=== PATIENT | male | born 1960 | race African-American/Black ===

== ENCOUNTER 2018-01-29 19:48 | Emergency (ER) | payer OTHER ==
--- NOTE | 2018-01-29 20:15 | PDOC ---
Rapid Medical Evaluation Time Seen by Provider: 01/29/18 20:13 Medical Evaluation: 01/29/18 20:13 I have performed a brief-in person evaluation of this patient. The patient presents with a chief complaint of:'I have numbness to the left side " just below the left chest x1 week. Numbness started on the left flank area Pt is a diabete/Type 2 Denies CP, SOB, n/v PMD: PMD: Dr. Wheat from [facility]/Pt's PMD is not affiliated with [facility] Pertinent physical exam findings: L/S CTAB, HR: RRR, S1, S2 I have ordered the following: EKG The patient will proceed to the ED for further evaluation.
[2018-01-29 20:16] VITALS: BP 133/73; PULSE 106; TEMP 98.2; BMI 31.0
[2018-01-29 20:44] LABS: BASO % 0.6 % (0-2.0); EOS % 2.3 % (0-4.5); HEMATOCRIT 39.1 % (35.4-49); HEMOGLOBIN 13.5 GM/dL (11.7-16.9); LYMPH % 36.9 % (8-40); MCH 32.3 pg (25.7-33.7); MCHC 34.6 g/dl (32.0-35.9); MEAN CELL VOLUME 93.2 fl (80-96); MEAN PLT VOLUME 8.6 fl (7.5-11.1); MONO % 7.4 % (3.8-10.2); NEUT % 52.8 % (42.8-82.8); PLATELET COUNT 213 K/MM3 (134-434); RDW 13.9 % (11.9-15.9); WHITE BLOOD COUNT 5.1 K/mm3 (4.0-10.0)
[2018-01-29 20:58] LABS: URINE APPEARANCE CLEAR; URINE BILIRUBIN NEGATIVE (<2.0 mg/dL); URINE COLOR YELLOW; URINE GLUCOSE (UA) 2+ (NEGATIVE); URINE KETONE NEGATIVE (NEGATIVE); URINE LEUK ESTERASE NEGATIVE (NEGATIVE); URINE NITRITE NEGATIVE (NEGATIVE); URINE PROTEIN NEGATIVE (NEGATIVE); URINE UROBILINOGEN NEGATIVE mg/dL (0.2-1.0)
[2018-01-29 21:11] LABS: ALBUMIN 3.9 g/dl (3.4-5.0); ANION GAP 12 (8-16); BLOOD UREA NITROGEN 13 mg/dL (7-18); CALCIUM 9.3 mg/dL (8.5-10.1); CHLORIDE 103 mmol/L (98-107); CO2 27 mmol/L (21-32); CREATININE 1.5 mg/dL (0.7-1.3); GLUCOSE,RANDOM 261 mg/dL (74-106); POTASSIUM 3.9 mmol/L (3.5-5.1); SGOT/AST 18 U/L (15-37); SGPT/ALT 17 U/L (12-78); SODIUM 142 mmol/L (136-145)
[2018-01-29 21:13] LABS: ALK PHOS 110 U/L (45-117); BILIRUBIN,TOTAL 0.4 mg/dL (0.2-1.0); TOT PROT 7.3 g/dl (6.4-8.2)
[2018-01-29 21:32] LABS: URINE BACTERIA RARE /hpf (NONE SEEN); URINE MUCUS RARE
[2018-01-30] MEDS ORDERED: amLODIPine BESYLATE 5 MG TABLET (FP) PO ONE (01:30)
--- NOTE | 2018-01-30 01:34 | PDOC ---
History of Present Illness - General History Source: Patient Exam Limitations: No Limitations - History of Present Illness Initial Comments: 01/30/18 02:48 Patient is a 57 year old male with a significant past medical history of Diabetes, who presents to the ED with complaints of left sided chest numbness, s /p fall that occured 1 week ago. Patient reports missing his chair when sitting down, causing him to hit his left chest on the counter and his buttocks on the floor. He reports feeling numbness in his left chest later that day, but states he only took aleve for it. Patient reports coming into the ED for further evaluation after experiencing no relief over the past week. Denies shortness of breath. Denies nausea, vomiting. Denies fevers, chills. Denies contact with sick individuals, out of state travelling. Denies any other symptoms. Allergies: Ion Social History: No smoking. No alcohol. No illicit drugs. Surgical History: None PMD: Dr. Juan M Kevin <Carter Castle - Last Filed: 01/30/18 02:48> <Coty Castro - Last Filed: 01/30/18 06:46> - General Chief Complaint: Back Pain Stated Complaint: NUMBESS ON LEFT SIDE OF CHEST Time Seen by Provider: 01/29/18 20:13 Past History <Carter Castle - Last Filed: 01/30/18 02:48> - Past Medical History COPD: No - Immunization History Immunization Up to Date: Yes - Suicide/Smoking/Psychosocial Hx Smoking History: Never smoked Have you smoked in the past 12 months: No Information on smoking cessation initiated: No Hx Alcohol Use: No Drug/Substance Use Hx: No Substance Use Type: None <Coty Castro - Last Filed: 01/30/18 06:46> - Past Medical History Allergies/Adverse Reactions: Allergies Allergy/AdvReac Type Severity Reaction Status Date / Time No Known Allergies Allergy Verified 01/29/18 20:16 Home Medications: Ambulatory Orders Amlodipine Besylate [Norvasc -] 5 mg PO DAILY #30 tablet 01/30/18 Review of Systems - Review of Systems Able to Perform ROS?: Yes Comments:: 01/30/18 02:48 GENERAL/CONSTITUTIONAL: No fever or chills. No weakness. HEAD, EYES, EARS, NOSE AND THROAT: No change in vision. No ear pain or discharge. No sore throat. CARDIOVASCULAR: +Left chest numbness. No shortness of breath. RESPIRATORY: No cough, wheezing, or hemoptysis. GASTROINTESTINAL: No nausea, vomiting, diarrhea or constipation. GENITOURINARY: No dysuria, frequency, or change in urination. MUSCULOSKELETAL: No joint or muscle swelling or pain. No neck or back pain. SKIN: No rash NEUROLOGIC: No headache, vertigo, loss of consciousness, or change in strength/ sensation. ENDOCRINE: No increased thirst. No abnormal weight change. HEMATOLOGIC/LYMPHATIC: No anemia, easy bleeding, or history of blood clots. ALLERGIC/IMMUNOLOGIC: No hives or skin allergy. <Carter Castle - Last Filed: 01/30/18 02:48> *Physical Exam - Vital Signs Last Vital Signs Temp Pulse Resp BP Pulse Ox 98.2 F 106 H 16 133/73 98 01/29/18 20:14 01/29/18 20:14 01/29/18 20:14 01/29/18 20:14 01/29/18 20:14 - Physical Exam Comments: 01/30/18 02:48 GENERAL: Awake, alert, and fully oriented, in no acute distress HEAD: No signs of trauma EYES: PERRLA, EOMI, sclera anicteric, conjunctiva clear ENT: Auricles normal inspection, hearing grossly normal, nares patent, oropharynx clear without exudates. Moist mucosa NECK: Normal ROM, supple, no lymphadenopathy, JVD, or masses LUNGS: Breath sounds equal, clear to auscultation bilaterally. No wheezes, and no crackles HEART: Regular rate and rhythm, normal S1 and S2, no murmurs, rubs or gallops ABDOMEN: Soft, nontender, normoactive bowel sounds. No guarding, no rebound. No masses EXTREMITIES: +Right leg pitting edema, greater than left. +Right knee arthritis , greater than left. Patient says chronic. Normal range of motion, no edema. No clubbing or cyanosis. No cords, erythema, or tenderness NEUROLOGICAL: Cranial nerves II through XII grossly intact. Normal speech, normal gait SKIN: Warm, Dry, normal turgor, no rashes or lesions noted. <Carter Castle - Last Filed: 01/30/18 02:48> - Vital Signs Last Vital Signs Temp Pulse Resp BP Pulse Ox 98.2 F 106 H 16 133/73 98 01/29/18 20:14 01/29/18 20:14 01/29/18 20:14 01/29/18 20:14 01/29/18 20:14 <Coty Castro - Last Filed: 01/30/18 06:46> Heart Score/ECG Review - ECG Intrepretation Comment:: 01/30/18 01:36 Completed @20:21:03 Sinus tachycardia Possible Left atrial fascicular block Left ventricular hypertrophy Abnormal ECG Vent. rate 104 bpm MO interval 140 ms QRS Duration 84 ms <Carter Castle - Last Filed: 01/30/18 02:48> ED Treatment Course - LABORATORY CBC & Chemistry Diagram: 01/29/18 20:40 01/29/18 20:40 - ADDITIONAL ORDERS Additional order review: Laboratory Results 01/29/18 01/29/18 20:40 20:40 Sodium 142 Potassium 3.9 Chloride 103 Carbon Dioxide 27 Anion Gap 12 BUN 13 Creatinine 1.5 H Creat Clearance w eGFR 48.59 Random Glucose 261 H Calcium 9.3 Total Bilirubin 0.4 AST 18 ALT 17 Alkaline Phosphatase 110 Creatine Kinase 242 Creatine Kinase Index 1.4 CK-MB (CK-2) 3.459 Troponin I < 0.02 Total Protein 7.3 Albumin 3.9 Urine Color Yellow Urine Appearance Clear Urine pH 5.0 Ur Specific [place] 1.024 Urine Protein Negative Urine Glucose (UA) 2+ H Urine Ketones Negative Urine Blood 2+ H Urine Nitrite Negative Urine Bilirubin Negative Urine Urobilinogen Negative Ur Leukocyte Esterase Negative Urine WBC (Auto) None Urine RBC (Auto) 1 Urine Bacteria Rare Urine Mucus Rare 01/29/18 20:40 RBC 4.20 MCV 93.2 MCHC 34.6 RDW 13.9 MPV 8.6 Neutrophils % 52.8 Lymphocytes % 36.9 Monocytes % 7.4 Eosinophils % 2.3 Basophils % 0.6 <Carter Castle - Last Filed: 01/30/18 02:48> - LABORATORY CBC & Chemistry Diagram: 01/29/18 20:40 01/29/18 20:40 - ADDITIONAL ORDERS Additional order review: Laboratory Results 01/29/18 01/29/18 20:40 20:40 Sodium 142 Potassium 3.9 Chloride 103 Carbon Dioxide 27 Anion Gap 12 BUN 13 Creatinine 1.5 H Creat Clearance w eGFR 48.59 Random Glucose 261 H Calcium 9.3 Total Bilirubin 0.4 AST 18 ALT 17 Alkaline Phosphatase 110 Creatine Kinase 242 Creatine Kinase Index 1.4 CK-MB (CK-2) 3.459 Troponin I < 0.02 Total Protein 7.3 Albumin 3.9 Urine Color Yellow Urine Appearance Clear Urine pH 5.0 Ur Specific [place] 1.024 Urine Protein Negative Urine Glucose (UA) 2+ H Urine Ketones Negative Urine Blood 2+ H Urine Nitrite Negative Urine Bilirubin Negative Urine Urobilinogen Negative Ur Leukocyte Esterase Negative Urine WBC (Auto) None Urine RBC (Auto) 1 Urine Bacteria Rare Urine Mucus Rare 01/29/18 20:40 RBC 4.20 MCV 93.2 MCHC 34.6 RDW 13.9 MPV 8.6 Neutrophils % 52.8 Lymphocytes % 36.9 Monocytes % 7.4 Eosinophils % 2.3 Basophils % 0.6 <Coty Castro - Last Filed: 01/30/18 06:46> Medical Decision Making - Medical Decision Making 01/30/18 06:44 Pt fell at work a couple weeks ago and now he has CP for a couple days. Labs normal. Pain is musculoskeletal. Pt is tachycardic with high BP today. He will be started on 5mg norvasc and he has been advised to follow with his PMD for meds. 01/30/18 06:45 EKG normal. Exam normal Pt feeling better. 01/30/18 06:46 <Coty Castro - Last Filed: 01/30/18 06:46> *DC/Admit/Observation/Transfer - Attestations Scribe Attestion: 01/30/18 02:48 Documentation prepared by Carter Castle, acting as biomedical engineering director for Coty Castro MD/DO. <Carter Castle - Last Filed: 01/30/18 02:48> <Coty Castro - Last Filed: 01/30/18 06:46> Diagnosis at time of Disposition: Low back pain - Discharge Dispostion Disposition: HOME - Prescriptions Prescriptions: Amlodipine Besylate [Norvasc -] 5 mg PO DAILY #30 tablet - Referrals Referrals: Juan M Kevin MD [Primary Care Provider] - - Patient Instructions - Post Discharge Activity
[2018-01-30] MEDS ORDERED: amLODIPine BESYLATE 5 MG TABLET (FP) ONE (01:55)
--- NOTE | 2018-01-30 09:20 | EKG ---
Test Reason : Blood Pressure : / mmHG Vent. Rate : 104 BPM Atrial Rate : 104 BPM P-R Int : 140 ms QRS Dur : 084 ms QT Int : 336 ms P-R-T Axes : 052 -52 047 degrees QTc Int : 441 ms SINUS TACHYCARDIA POSSIBLE LEFT ATRIAL ENLARGEMENT LEFT ANTERIOR FASCICULAR BLOCK LEFT VENTRICULAR HYPERTROPHY ABNORMAL ECG WHEN COMPARED WITH ECG OF 24-FEB-2004 13:50, NO SIGNIFICANT CHANGE WAS FOUND Confirmed by NUNU QUEEN, EZIO ([id number]) on 01/30/2018 9:20:24 AM Referred By: Confirmed By:EZIO EDDY MD
== END 2018-01-30 02:24 | disposition home or self-care (01) ==
LOC: JER 19:48
DX: M54.5 Low back pain (principal); I10 Essential (primary) hypertension; W07.XXXA Fall from chair, initial encounter; Y93.89 Activity, other specified; Y92.89 Other specified places as the place of occurrence of the external cause; Y99.8 Other external cause status
CPT/HCPCS: 36415; 80053; 81003; 81015; 82550; 82553; 84484; 85025; 93005; 93010; 99281-25

== ENCOUNTER 2019-11-23 11:22 | Inpatient (IN) | payer BC, OTHER ==
[2019-11-23] MEDS ORDERED: SODIUM CHLORIDE 1,000 ML IV SCH (12:30)
[2019-11-23 13:32] LABS: INR 0.95 (0.83-1.09); PROTHROMBIN TIME (PATIENT) 11.2 SEC (9.7-13.0)
[2019-11-23 13:36] LABS: ACTIVATED PTT 27.7 SECONDS (25.2-36.5)
[2019-11-23 13:45] LABS: BASO % 0.5 % (0-2.0); EOS % 1.7 % (0-4.5); HEMATOCRIT 43.1 % (35.4-49); HEMOGLOBIN 14.2 GM/dL (11.7-16.9); LYMPH % 42.7 % (8-40); MCH 31.2 pg (25.7-33.7); MEAN CELL VOLUME 94.3 fl (80-96); MEAN PLT VOLUME 9.6 fl (7.5-11.1); MONO % 6.8 % (3.8-10.2); NEUT % 48.3 % (42.8-82.8); PLATELET COUNT 229 K/MM3 (134-434); RBC 4.57 M/mm3 (4.00-5.60); RDW 14.1 % (11.9-15.9); WHITE BLOOD COUNT 5.9 K/mm3 (4.0-10.0)
[2019-11-23 13:46] LABS: URINE APPEARANCE CLEAR; URINE BILIRUBIN NEGATIVE (NEGATIVE); URINE COLOR YELLOW; URINE GLUCOSE (UA) NEGATIVE (NEGATIVE); URINE KETONE NEGATIVE (NEGATIVE); URINE LEUK ESTERASE NEGATIVE (NEGATIVE); URINE NITRITE NEGATIVE (NEGATIVE); URINE PROTEIN NEGATIVE (NEGATIVE); URINE UROBILINOGEN 0.2 mg/dL (0.2-1.0)
[2019-11-23 13:49] LABS: CHOLESTEROL 171 mg/dL (50-200); HDL CHOLESTEROL 41 mg/dL (40-60); LDL CHOLESTEROL (ONLY SJRH) 113 mg/dL (5-100); TRIGLYCERIDES 72 mg/dL (0-150)
[2019-11-23] MEDS ORDERED: ASPIRIN 325 MG TABLET PO ONE (13:49)
[2019-11-23] MEDS ORDERED: ASPIRIN 81 MG CHEWABLE TABLETS ONE (13:53)
--- NOTE | 2019-11-23 14:15 | EKG ---
Test Reason : Blood Pressure : / mmHG Vent. Rate : 090 BPM Atrial Rate : 090 BPM P-R Int : 146 ms QRS Dur : 086 ms QT Int : 360 ms P-R-T Axes : 056 -51 027 degrees QTc Int : 440 ms NORMAL SINUS RHYTHM LEFT ANTERIOR FASCICULAR BLOCK MINIMAL VOLTAGE CRITERIA FOR LVH, MAY BE NORMAL VARIANT ABNORMAL ECG WHEN COMPARED WITH ECG OF 29-JAN-2018 20:21, NO SIGNIFICANT CHANGE WAS FOUND Confirmed by MD CEASAR, SNEHAL ([id number]) on 11/23/2019 2:15:33 PM Referred By: Confirmed By:SNEHAL MCDONOUGH MD
[2019-11-23 14:20] LABS: ALBUMIN 4.1 g/dl (3.4-5.0); ALK PHOS 101 U/L (45-117); ANION GAP 7 MMOL/L (8-16); BILIRUBIN,TOTAL 0.3 mg/dL (0.2-1); BLOOD UREA NITROGEN 14.7 mg/dL (7-18); CALCIUM 9.5 mg/dL (8.5-10.1); CHLORIDE 105 mmol/L (98-107); CO2 28 mmol/L (21-32); CREATININE 1.2 mg/dL (0.55-1.3); GLUCOSE,RANDOM 119 mg/dL (74-106); SGOT/AST 30 U/L (15-37); SGPT/ALT 29 U/L (13-61); SODIUM 140 mmol/L (136-145); TOT PROT 7.6 g/dl (6.4-8.2)
--- NOTE | 2019-11-23 15:42 | PDOC ---
Documentation entered by Cathy Freire SCRIBE, acting as scribe for Kurtis Stallworth MD. Kurtis Stallworth MD: This documentation has been prepared by the Mouna lopez Adrianna, SCRIBE, under my direction and personally reviewed by me in its entirety. I confirm that the documentation accurately reflects all work, treatment, procedures, and medical decision making performed by me. History of Present Illness - General Chief Complaint: CVA/TIA Stated Complaint: NUMBNESS IN HAND AND FACE Time Seen by Provider: 11/23/19 12:04 - History of Present Illness Initial Comments: The patient is a 59 year old male, with a significant PMH of DM, who presents to the ED for evaluation of right-sided numbness that began this morning. Patient notes that he woke up from his sleep around 4am this morning, as the right lower half of his face and his right fingers had gone numb. He notes at that time, he had difficulty speaking to his , stating that he couldnt speak clearly. This episode lasted for ~30 minutes and slowly began resolving. Patient was able to go back to sleep following the incident. Although his symptoms have progressively gotten better, he notes he still has some numbness in his face and fingers (face is more predominant) so he came to the ED for further evaluation. He endorses some bilateral blurred vision and difficulty walking. Patient notes he measured his blood sugar prior to arrival, which was 133. Denies any weakness in the upper or lower extremities. Allergies: NKA, NKDA Surgical History: None reported Social History: No toxic habits PCP: NOS Past History - Past Medical History Allergies/Adverse Reactions: Allergies Allergy/AdvReac Type Severity Reaction Status Date / Time No Known Allergies Allergy Verified 11/23/19 11:35 Home Medications: Ambulatory Orders Glimepiride 4 mg PO BID 11/23/19 metFORMIN HCL [Metformin ER Osmotic] 1,000 mg PO BID 11/23/19 COPD: No Diabetes: Yes - Immunization History Immunization Up to Date: Yes - Psycho Social/Smoking Cessation Hx Smoking History: Never smoked Have you smoked in the past 12 months: No Information on smoking cessation initiated: No Hx Alcohol Use: No Drug/Substance Use Hx: No Substance Use Type: None Review of Systems - Review of Systems Comments:: CONSTITUTIONAL: No fever, no chills, no fatigue EYES: +Bilateral blurred vision. ENT: No ear pain, no sore throat CARDIOVASCULAR: No chest pain, no palpitations RESPIRATORY: No cough, no SOB GI: No abdominal pain, no nausea, no vomiting, no constipation, no diarrhea GENITOURINARY: No dysuria, no frequency, no hematuria MUSKULOSKELETAL: No back pain, no joint pain, no myalgias SKIN: No rash NEURO: +right lower facial numbness. +Right digits numbness. +Difficulty speaking clearly. +Difficulty walking. *Physical Exam - Vital Signs Last Vital Signs Temp Pulse Resp BP Pulse Ox 100 H 18 160/73 100 11/23/19 11:30 11/23/19 11:30 11/23/19 11:30 11/23/19 11:30 - Physical Exam 11/23/19 15:22 EXAMINATION CONSTITUTIONAL: Well-appearing; well-nourished; in no apparent distress HEAD: Normocephalic; atraumatic EYES: PERRL; EOM intact ENMT: External appears normal; normal oropharynx NECK: Supple; non-tender; no cervical lymphadenopathy CARD: Normal S1, S2; no murmurs, rubs, or gallops RESP: Normal chest excursion with respiration; breath sounds clear and equal bilaterally; no wheezes, rhonchi, or rales ABD: Soft, non-distended; non-tender; no palpable organomegaly, no palpable hernias EXT: Normal ROM in all four extremities; non-tender to palpation; distal pulses intact SKIN: Warm, dry, no rash NEURO: Cranial nerves II through XII are grossly intact; motor is five 5 x 4; no pronation drift; no cerebellar signs; gait is stable. Decreased fine touch noted to right lower face NIH Stroke Scale - Last Known Well Date/Time & Onset Date Last Known Well: 11/23/19 Time Last Known Well: 04:00 - Initial Evaluation Level of consciousness: Alert Ask patient the month and their age: Answers both correctly Ask patient to open & close eyes; make fist and let go: Obeys both correctly Best gaze (horizontal eye movement): Normal Visual field testing: No visual field loss Facial paresis (Show teeth/raise eyebrows/close eyes tight): Normal symmetrical movement Motor Function: Left Arm: Normal Motor Function: Right Arm: Normal (extends arm 90 (or 45) degrees for 10 seconds without drift Motor Function: Left Leg: Normal (extends leg 30 degrees for 5 seconds without drift) Motor Function: Right Leg: Normal (extends leg 30 degrees for 5 seconds without drift) Limb Ataxia: No ataxia Sensory(Use pinprick test arms,legs,trunk,face/side to side): Mild to moderate decrease in sensation Best language (Describe picture, name items, read sentences): No Aphasia Dysarthria (read several words): Normal articulation Extinction and Inattention: No abnormality - Total Score NIH Stroke Scale Score: 1 Heart Score/ECG Review - ECG Impressions Comment:: EKG performed at 12:32 on 11/23/2019 demonstrates rate of 90bpm, normal sinus rhythm, left anterior fasicular block. Minimal voltage criteria for LVH. Unchanged from prior 01/29/18 ECG. Critical Care Time/MDM Note - Medical Decision Making Note: 11/23/19 15:24 Patient is a 59-year-old male with history of diabetes, who presented with right -sided facial paresthesias, right hand paresthesias and word finding difficulty that occurred 7.5 hours prior to arrival, most of whom have now resolved. In the ER, patient is awake and alert, without significant focal neuro deficits. Decreased fine touch is noted to right face with an H stroke scale of 1. Patient is not a TPA or thrombectomy candidate at this time. CT of head shows no evidence of acute intracranial hemorrhage, I had paracolic left pontine lesion is noted of unknown chronicity. Will administer aspirin. Case discussed with Dr. Lester. Will admit to stroke for further evaluation and treatment. Discharge - Discharge Information Problems reviewed: Yes Clinical Impression/Diagnosis: Transient ischemic attack Condition: Fair - Admission Yes - Follow up/Referral Referrals: ON STAFF,NOT [Primary Care Provider] - - Patient Discharge Instructions - Post Discharge Activity ED Treatment Course - LABORATORY CBC & Chemistry Diagram: 11/23/19 12:50 11/23/19 12:50 - ADDITIONAL ORDERS Additional order review: Laboratory Results 11/23/19 11/23/19 11/23/19 12:50 12:50 12:50 PT with INR 11.20 INR 0.95 PTT (Actin FS) 27.7 Triglycerides 72 Cholesterol 171 Total LDL Cholesterol 113 H HDL Cholesterol 41 Urine Color Yellow Urine Appearance Clear Urine pH 5.0 Ur Specific [place] 1.010 Urine Protein Negative Urine Glucose (UA) Negative Urine Ketones Negative Urine Blood Negative Urine Nitrite Negative Urine Bilirubin Negative Urine Urobilinogen 0.2 Ur Leukocyte Esterase Negative 11/23/19 12:50 RBC 4.57 MCV 94.3 MCHC 33.0 RDW 14.1 MPV 9.6 D Neutrophils % 48.3 Lymphocytes % 42.7 H Monocytes % 6.8 Eosinophils % 1.7 Basophils % 0.5 - RADIOLOGY Radiology Studies Ordered: Category Date Time Status HEAD CT (STROKE) [CT] Stat CT Scan 11/23/19 12:20 Completed CHEST X-RAY PORTABLE* [RAD] Stat Radiology 11/23/19 12:20 Taken CAROTID COLOR FLOW DOPP US [US] Stat Ultrasound 11/23/19 12:21 Completed Radiograph Interpretation: EXAM#: TYPE/EXAM: RESULT: [id number] CT/HEAD CT (STROKE) Rule out stroke IMPRESSION: 8 x 5 mm focal low-attenuation density in left side of the saleem compatible with an infarct, of indeterminate age. Correlate clinically to determine further evaluation. Case discussed with Dr. Hayden Galicia, caring resident the emergency room. Reported By: Jessica Kim MD 11/23/19 13:42 EXAM#: TYPE/EXAM: RESULT: [id number] US/CAROTID COLOR FLOW DOPP US History of TIA Impression: Mild intimal thickening in the distal common carotid artery and at the bifurcation, bilaterally without evidence of hemodynamically significant stenosis, NASCET criteria Reported By: Jessica Kim MD 11/23/19 13:57 - Medications Given in the ED: ED Medications Discontinued Medications Generic Name Dose Route Start Last Admin Trade Name Freq PRN Reason Stop Dose Admin Aspirin 325 mg 11/23/19 13:49 11/23/19 13:58 Asa - PO 11/23/19 13:50 325 mg ONCE ONE Administration
--- NOTE | 2019-11-23 16:04 | HP ---
CHIEF COMPLAINT: right sided numbness PCP: HISTORY OF PRESENT ILLNESS: Patient is a 59 year old male with past medical history of DM, presented to the ED due to right sided facial and right hand numbness that started around 4am this morning. Patient reported he woke up around 4am and immediately noted right facial numbness, accompanied by right hand numbness. He described it as "numb" and "stiff", that he felt uncomfortable moving the right side of his face. This episode lasted about 30 minutes, and the numbness improved, although still persisted, and patient went back to sleep. When he woke up this morning, patient still noted the right facial numbness, so patient came to the ED for further evaluation. Patient reported he also experienced left leg weakness for about 3 weeks, which gave him some instability while walking. Patient denies any recent illness, denies recent travel. Denies fevers, chills, headache, dizziness, chest pain, SOB, palpitations, abdominal pain, diarrhea, urinary symptoms. Of note, patient was diagnosed with HTN, but his BP meds were discontinued by his PCP about 7 years ago as he was noted to have normal BP. ER course was notable for: (1)Head CT - 8x5mm focal low-attenuation density in Left side of saleem compatible with infarct of indeterminate age. (2)Carotid US - minimal thickening in distal common carotid artery and anterior bifurcation bilateral without evidence of significant hemodynamic instability. (3) Recent Travel:denies PAST MEDICAL HISTORY: DM Hx of blood clot in the right leg after sports injury (1985) PAST SURGICAL HISTORY: Right shoulder surgery Social History: Smoking:previous smoker Alcohol:occasional etoh use Drugs: denies Allergies No Known Allergies Allergy (Verified 11/23/19 11:35) HOME MEDICATIONS: Home Medications Medication Instructions Recorded Glimepiride 4 mg PO BID 11/23/19 metFORMIN HCL [Metformin ER 1,000 mg PO BID 11/23/19 Osmotic] REVIEW OF SYSTEMS CONSTITUTIONAL: Absent: fever, chills, diaphoresis, generalized weakness, malaise, loss of appetite, weight change HEENT: Absent: rhinorrhea, nasal congestion, throat pain, throat swelling, difficulty swallowing, mouth swelling, ear pain, eye pain, visual changes CARDIOVASCULAR: Absent: chest pain, syncope, palpitations, irregular heart rate, lightheadedness, peripheral edema RESPIRATORY: Absent: cough, shortness of breath, dyspnea with exertion, orthopnea, wheezing, stridor, hemoptysis GASTROINTESTINAL: Absent: abdominal pain, abdominal distension, nausea, vomiting, diarrhea, constipation, melena, hematochezia GENITOURINARY: Absent: dysuria, frequency, urgency, hesitancy, hematuria, flank pain, genital pain MUSCULOSKELETAL: Absent: myalgia, arthralgia, joint swelling, back pain, neck pain SKIN: Absent: rash, itching, pallor HEMATOLOGIC/IMMUNOLOGIC: Absent: easy bleeding, easy bruising, lymphadenopathy, frequent infections ENDOCRINE: Absent: unexplained weight gain, unexplained weight loss, heat intolerance, cold intolerance NEUROLOGIC: right facial numbness, right hand numbness Absent: headache, focal weakness or paresthesias, dizziness, unsteady gait, seizure, mental status changes, bladder or bowel incontinence PSYCHIATRIC: Absent: anxiety, depression, suicidal or homicidal ideation, hallucinations. PHYSICAL EXAMINATION Vital Signs - 24 hr 11/23/19 11:30 Pulse Rate 100 H Respiratory 18 Rate Blood Pressure 160/73 O2 Sat by Pulse 100 Oximetry (%) GENERAL: Awake, alert, and fully oriented, in no acute distress. HEAD: Normal with no signs of trauma. EYES: PERRLA, EOMI, sclera anicteric, conjunctiva clear. EARS, NOSE, THROAT: Moist mucous membranes. NECK: Normal range of motion, supple LUNGS: Breath sounds equal, clear to auscultation bilaterally. HEART: Regular rate and rhythm, normal S1 and S2 without murmur, rub or gallop. ABDOMEN: Soft, nontender, not distended, normoactive bowel sounds. MUSCULOSKELETAL: Normal range of motion at all joints. LOWER EXTREMITIES: 2+ pulses, warm, well-perfused. No calf tenderness. No per ipheral edema. NEUROLOGICAL: Cranial nerves II-XII grossly intact. Normal speech. Normal gait. Motor strength 4/5 RLE, 5/5 RUE/LUE/LLE, sensation intact on all extremities. No Dysmetria, no dysdiadochokinesia. PSYCHIATRIC: Cooperative. Good eye contact. Appropriate mood and affect. SKIN: Warm, dry, normal turgor. Laboratory Results - last 24 hr 11/23/19 11/23/19 11/23/19 12:50 12:50 12:50 WBC 5.9 RBC 4.57 Hgb 14.2 Hct 43.1 MCV 94.3 MCH 31.2 MCHC 33.0 RDW 14.1 Plt Count 229 MPV 9.6 D Absolute Neuts (auto) 2.9 Neutrophils % 48.3 Lymphocytes % 42.7 H Monocytes % 6.8 Eosinophils % 1.7 Basophils % 0.5 Nucleated RBC % 0 PT with INR 11.20 INR 0.95 PTT (Actin FS) 27.7 Sodium Potassium Chloride Carbon Dioxide Anion Gap BUN Creatinine Est GFR (CKD-EPI)AfAm Est GFR (CKD-EPI)NonAf POC Glucometer Random Glucose Calcium Total Bilirubin AST ALT Alkaline Phosphatase Creatine Kinase Creatine Kinase Index CK-MB (CK-2) Troponin I Total Protein Albumin Triglycerides 72 Cholesterol 171 Total LDL Cholesterol 113 H HDL Cholesterol 41 Urine Color Urine Appearance Urine pH Ur Specific [place] Urine Protein Urine Glucose (UA) Urine Ketones Urine Blood Urine Nitrite Urine Bilirubin Urine Urobilinogen Ur Leukocyte Esterase Blood Type Antibody Screen 11/23/19 11/23/19 11/23/19 12:50 12:50 12:50 WBC RBC Hgb Hct MCV MCH MCHC RDW Plt Count MPV Absolute Neuts (auto) Neutrophils % Lymphocytes % Monocytes % Eosinophils % Basophils % Nucleated RBC % PT with INR INR PTT (Actin FS) Sodium 140 Potassium 4.0 Chloride 105 Carbon Dioxide 28 Anion Gap 7 L BUN 14.7 Creatinine 1.2 Est GFR (CKD-EPI)AfAm 77.33 Est GFR (CKD-EPI)NonAf 66.72 POC Glucometer Random Glucose 119 H Calcium 9.5 Total Bilirubin 0.3 AST 30 ALT 29 Alkaline Phosphatase 101 Creatine Kinase 174 Creatine Kinase Index 0.9 CK-MB (CK-2) 1.6 Troponin I < 0.02 Total Protein 7.6 Albumin 4.1 Triglycerides Cancelled Cholesterol Cancelled Total LDL Cholesterol Cancelled HDL Cholesterol Cancelled Urine Color Yellow Urine Appearance Clear Urine pH 5.0 Ur Specific [place] 1.010 Urine Protein Negative Urine Glucose (UA) Negative Urine Ketones Negative Urine Blood Negative Urine Nitrite Negative Urine Bilirubin Negative Urine Urobilinogen 0.2 Ur Leukocyte Esterase Negative Blood Type B POSITIVE Antibody Screen Negative 11/23/19 13:57 WBC RBC Hgb Hct MCV MCH MCHC RDW Plt Count MPV Absolute Neuts (auto) Neutrophils % Lymphocytes % Monocytes % Eosinophils % Basophils % Nucleated RBC % PT with INR INR PTT (Actin FS) Sodium Potassium Chloride Carbon Dioxide Anion Gap BUN Creatinine Est GFR (CKD-EPI)AfAm Est GFR (CKD-EPI)NonAf POC Glucometer 88 Random Glucose Calcium Total Bilirubin AST ALT Alkaline Phosphatase Creatine Kinase Creatine Kinase Index CK-MB (CK-2) Troponin I Total Protein Albumin Triglycerides Cholesterol Total LDL Cholesterol HDL Cholesterol Urine Color Urine Appearance Urine pH Ur Specific [place] Urine Protein Urine Glucose (UA) Urine Ketones Urine Blood Urine Nitrite Urine Bilirubin Urine Urobilinogen Ur Leukocyte Esterase Blood Type Antibody Screen ASSESSMENT/PLAN: Patient is a 59 year old male with past medical history of DM, presented to the ED due to right sided facial and right hand numbness that started around 4am this morning. #Right facial numbness -likely 2/2 TIA vs CVA -Head CT - 8x5mm focal low-attenuation density in Left side of saleem compatible with infarct of indeterminate age. -Carotid US - minimal thickening in distal common carotid artery and anterior bifurcation bilateral without evidence of significant hemodynamic instability. -Aspirin 325mg given at the ED -will continue ASA and start Lipitor 40mg Hs -will hold BP meds, allow permissive HTN for 24 hrs -Echo -Brain MRI/MRA without contrast -Neurochecks -Keep HOB elevated -Speech and swallow -Repeat fasting labs in the morning -physical therapy -Neurology (Dr. Mcmullen) consulted. #DM -Hold home Glimepiride and Metformin -Insulin sliding scale implemented -BGM ACHS #FEN -not on any standing fluids -Electrolytes wnl, routine bmp monitoring -passed bedside swallow eval, resume Diabetic/sodium restricted diet #Prophylaxis -Lovenox 40mg sq daily #Disposition -full code -admit to tele Visit type - Emergency Visit Emergency Visit: Yes ED Registration Date: 11/23/19 Care time: The patient presented to the Emergency Department on the above date and was hospitalized for further evaluation of their emergent condition. - New Patient This patient is new to me today: Yes Date on this admission: 11/23/19 - Critical Care Critical Care patient: No ATTENDING PHYSICIAN STATEMENT I saw and evaluated the patient. I reviewed the resident's note and discussed the case with the resident. I agree with the resident's findings and plan as documented. SUBJECTIVE: OBJECTIVE: ASSESSMENT AND PLAN:
--- NOTE | 2019-11-23 17:40 | PN ---
Teaching Attending Note Name of Resident: Hodan Chavarria ATTENDING PHYSICIAN STATEMENT I saw and evaluated the patient. I reviewed the resident's note and discussed the case with the resident. I agree with the resident's findings and plan as documented. SUBJECTIVE:Patient is a 59 year old male with past medical history of DM, remote h/o dvt R leg in 1987 after travel to [place], malaria 7 yrs ago, presented to the ED due to right sided facial and right hand numbness that started around 4am this morning. Patient reported he woke up around 4am and immediately noted right facial numbness, accompanied by right hand numbness. He described it as "numb" and "stiff", that he felt uncomfortable moving the right side of his face. This episode lasted about 30 minutes, and the numbness improved, although still persisted, and patient went back to sleep. When he woke up this morning, patient still noted the right facial numbness, so patient came to the ED for further evaluation. Patient reported he also experienced R leg weakness for about 3 weeks, which gave him some instability while walking. Patient denies any recent illness, denies recent travel. Denies fevers, chills, headache, dizziness, chest pain, SOB, palpitations, abdominal pain, diarrhea, urinary symptoms. Of note, patient was diagnosed with HTN, but his BP meds were discontinued by his PCP about 7 years ago as he was noted to have normal BP. OBJECTIVE: a middle aged male , with nad, alert , awake and oriented to time, place and person, vss except BP, 160/88. neck supple no jvd heent , pupils perrla, and eomi, cvs s1.s2/0 chest ctab abd benign ext no c/c/e/ ASSESSMENT AND PLAN: a middle aged man with pmh o f the diabetes here for the new onset numbness R side of the face and R arm, -likely 2/2 TIA vs CVA -Head CT - 8x5mm focal low-attenuation density in Left side of saleem compatible with infarct of indeterminate age. -Carotid US - minimal thickening in distal common carotid artery and anterior bifurcation bilateral without evidence of significant hemodynamic instability. -Aspirin 325mg given at the ED -will continue ASA and start Lipitor 40mg Hs bp slightly high , will check repeat in am and fu, -Echo -Brain MRI/MRA without contrast -Neurochecks -Keep HOB elevated -Speech and swallow -Repeat fasting labs in the morning -physical therapy -Neurology (Dr. Mcmullen) consulted. continue to monitor the sugars, and also
--- NOTE | 2019-11-23 18:44 | CON.NEURO ---
Consult Consult Specialty:: Benedict Referred by:: ER - History of Present Illness History of Present Illness: Keenan is a very pleasant 59-year-old right-handed man with history ofDVT in the past history of diabetes and history of malaria 7 years ago presented to the emergency room morning at 4:00 in the morning with right arm numbness right facial numbness patient then back to sleep patient then decided to come to the emergency room patient was outside the window for intravenous thrombolysis. CAT scan of the head revealed questionable evidence of left pontine stroke. Patient had an MRI of the brain which revealed no evidence for acute pathology. - History Source History Provided By: Patient Limitations to Obtaining History: No Limitations - Alcohol/Substance Use Hx Alcohol Use: No - Smoking History Smoking history: Never smoked Have you smoked in the past 12 months: No Home Medications - Allergies Allergies/Adverse Reactions: Allergies Allergy/AdvReac Type Severity Reaction Status Date / Time No Known Allergies Allergy Verified 11/23/19 11:35 - Home Medications Home Medications: Ambulatory Orders Glimepiride 4 mg PO BID 11/23/19 metFORMIN HCL [Metformin ER Osmotic] 1,000 mg PO BID 11/23/19 Family Medical History Family History: Unremarkable Review of Systems - Review of Systems Neurological: reports: Headache, Incoordination, Numbness Physical Exam-Neuro Vital Signs: Vital Signs Temperature Pulse Rate 100 H 11/23/19 11:30 Respiratory Rate 18 11/23/19 11:30 Blood Pressure 160/73 11/23/19 11:30 O2 Sat by Pulse Oximetry (%) 100 11/23/19 11:30 Constitutional: Yes: Well Nourished Neck: Yes: WNL Cardiovascular: Yes: WNL Labs: CBC, BMP 11/23/19 12:50 11/23/19 12:50 INR, PTT INR 0.95 (0.83-1.09) 11/23/19 12:50 - Neuro Exam Level Of Consciousness: Yes: Oriented to Person, Oriented to Place, Oriented to Time Eyes: Yes: PERRLA Speech: WNL Dominant Hand: Right Cranial Nerves II-XII Intact: Yes Gag: Present DTR's: 1+ Left Bicep, 1+ Right Bicep, 1+ Left Tricep, 1+ Right Tricep Response to light touch: Normal Response to pain prick: Normal Response to temperature: Normal Response to vibration: Normal Motor Strength: 3/5: Left Arm, Right Arm, Left Leg, Right Leg Gait: Deferred Imaging - Results Cat Scan: Image Reviewed Problem List - Problems (1) Transient ischemic attack Code(s): G45.9 - TRANSIENT CEREBRAL ISCHEMIC ATTACK, UNSPECIFIED Assessment/Plan . Tight blood sugar control. 2. Get the results of the MRA. 3. A lipid. 4. Baby aspirin. 5. Crestor 5 mg once daily. Admit for observation Thank you very much for allowing me to be part of this patient's neurological care Hernandez Mcmullen M.D., MSc [facility] [address] [place] [address] Office
[2019-11-23] MEDS: INSULIN SLIDING SCALE (NOVOLOG) 1 VIAL SQ SCH ×2 (18:58→22:37)
[2019-11-23] MEDS ORDERED: INSULIN (NOVOLOG) ASPART 100 UNITS/ML 10ML VIAL ONE (20:52)
[2019-11-23] MEDS ORDERED: ATORVASTATIN CA 40 MG TABLET (FP) PO SCH (22:00)
[2019-11-24 00:22] VITALS: BMI 30.6
[2019-11-24] MEDS ORDERED: PNEUMOC 13-VAL CONJ-DIP CRM/PF 0.5 ML DISP.SYRIN IM ONE (01:02)
[2019-11-24] MEDS ORDERED: LOSARTAN POTASSIUM 25 MG TABLET PO ONE (07:47)
[2019-11-24] MEDS ORDERED: LOSARTAN POTASSIUM 25 MG TABLET PO SCH (08:00)
[2019-11-24] MEDS ORDERED: INSULIN (NOVOLOG) ASPART 100 UNITS/ML 10ML VIAL ONE (08:09)
[2019-11-24] MEDS: INSULIN SLIDING SCALE (NOVOLOG) 1 VIAL SQ SCH ×3 (08:12→17:37)
[2019-11-24] MEDS ORDERED: ASPIRIN COATED 81 MG TABLET.EC PO SCH (10:00)
[2019-11-24] MEDS ORDERED: FLU VACCINE QUAD 60 MCG/0.5 ML (MDV 19-20) IM ONE (10:00)
[2019-11-24] MEDS ORDERED: ENOXAPARIN NA (PORCINE) 40 MG/0.4 ML DISP.SYRIN SQ SCH (10:00)
[2019-11-24] MEDS ORDERED: PNEUMOCOCCAL 23 VACCINE 0.5 ML VIAL IM ONE (10:00)
--- NOTE | 2019-11-24 10:47 | CONSULT ---
Admitting History and Physical - Primary Care Physician PCP: Elba Gentile - Admission History of Present Illness: Per EMR- 59-year-old right-handed man with history of DVT in the past history of diabetes and history of malaria 7 years ago presented to the emergency room morning at 4 :00 in the morning with right arm numbness right facial numbness patient then back to sleep patient then decided to come to the emergency room patient was outside the window for intravenous thrombolysis. CAT scan of the head revealed questionable evidence of left pontine stroke. Patient had an MRI of the brain which revealed no evidence for acute pathology Selected Entries 11/23/19 11/23/19 11/24/19 21:00 22:00 01:00 Temperature 97.8 F 97.8 F 98.1 F 11/24/19 09:00 Temperature 98.0 F Laboratory Tests 11/23/19 12:50 WBC 5.9 History Source: Patient Limitations to Obtaining History: No Limitations - Smoking History Smoking history: Former smoker Have you smoked in the past 12 months: No If you are a former smoker, when did you quit?: 5 yrs ago - Alcohol/Substance Use Hx Alcohol Use: No History - Admission Reason For Visit: TIA - Diagnostics X-ray: Report Reviewed CT Scan: Report Reviewed MRI: Report Reviewed - General Mental Status: Alert and Oriented, Awake and Alert, Able to Follow Commands Attention: Intact Ability to Follow Directions: Excellent - Hearing Hearing: Normal Hearing Aide: No With Patient: No Speech Evaluation - Communication Primary Language: FINNISH Communication: Yes: Within Normal Limits Oral Expression Ability: Yes: No Impairment - Speech Production Able to Make Needs Known: Yes: WNL Intelligibility: Yes: WNL - Speech Characteristics Voice Loudness: Normal Voice Pitch: Yes: Normal Voice Phonatory-based Quality: Yes: Normal Speech Pattern: Normal Speech Clarity: < 100% Nasal Resonance: Normal Articulation: Yes: Precise Rate of Speech: Intact - Language/Auditory Comprehension Follows: Yes: 2 Stage Simple Commands Observation: Able to respond to yes/no queries: Yes, Yes/No Confusion: No, Comprehends Conversational Speech: Yes - Language/Verbal Expression Able to Respond to Simple Queries: Yes: WNL Able to Communicate Wants and Needs: Yes: WNL Functional Communication Status: Yes: WNL - Memory/Perception manager long term care Memory: Yes: WNL Short Term Memory: Yes: WNL - Swallow Evaluation/Bedside Assessment Current Nutritional Intake: Regular, Thin Liquids Oral Secretions: Yes: WFL Dentition: Yes: Adequate Facial Symmetry at Rest: Symmetrical Facial Symmetry on Retraction: Symmetrical Facial Movement: Controlled Sensation: Normal Against Resistance Opening: Normal Against Resistance Closing: Normal Pucker Lips: Normal Smile: Normal Lingual Movement: Normal, Symmetric Lingual Speed of Movement: Normal Lingual Movement Strgth Against Opposition: Normal Lingual Movement Characteristics: Normal Velopharyngeal Movement: Normal Laryngeal Elevation: WFL Laryngeal Movement: Able to Palpate Rate of Intake: WFL Bolus Size: WFL Labial Seal: WFL Chewing: WFL Oral Prep Time: WFL A-P Transit: WFL Pocketing: None Timing of Swallow: WFL Coughing/Throat Clear: No Change in Voice: No Recommendations - Speech Evaluation, Impression/Plan Impression: Speech, language, swallowing, cognition intact - Dysphagia Impressions/Plan Dysphagia Impressions: No Impairment *Silent aspiration: cannot be R/O at bedside - Recommendations Diet Consistency: Regular Medication Administration: Whole with water Liquids: Thin Liquids
--- NOTE | 2019-11-24 13:09 | ECHO ---
Name: SUKHDEV LIZ Exam:Adult Echocardiogram Study Date: 11/24/2019 10:19 AM Age: 59 yrs Reason For Study: Stroke Height: 68 in Weight: 209 lb BSA: 2.1 m2 MMode/2D Measurements & Calculations IVSd: 0.97 cm Ao root diam: 3.1 cm LVIDd: 3.5 cm LA dimension: 3.9 cm LVIDs: 2.4 cm ACS: 1.5 cm LVPWd: 1.3 cm EDV(Teich): 52.3 ml LVOT diam: 2.0 cm ESV(Teich): 20.5 ml RV S Isaías: 11.0 cm/sec Doppler Measurements & Calculations MV E max isaías: 56.8 cm/sec MV A max isaías: 92.4 cm/sec MV dec slope: 270.8 cm/sec2 MV E/A: 0.61 Ao V2 max: 131.2 cm/sec LV V1 max P.9 mmHg Ao max P.9 mmHg LV V1 mean P.9 mmHg Ao V2 mean: 89.9 cm/sec LV V1 max: 111.1 cm/sec Ao mean P.6 mmHg LV V1 mean: 63.1 cm/sec Ao V2 VTI: 26.0 cm LV V1 VTI: 18.0 cm KYM(I,D): 2.1 cm2 KYM(V,D): 2.6 cm2 SV(LVOT): 55.0 ml TR max isaías: 174.5 cm/sec TR max P.2 mmHg PA V2 max: 111.5 cm/sec Med Peak E' Isaías: 4.7 cm/sec PA max P.0 mmHg Med E/e': 12.1 Lat Peak E' Isaías: 6.2 cm/sec Lat E/e': 9.2 Procedure A complete two-dimensional transthoracic echocardiogram was performed (2D, M-mode, Doppler and color flow Doppler). Left Ventricle The left ventricular size, thickness and function are normal. The left ventricular ejection fraction is normal. Ejection Fraction = 60-65%. The left ventricular wall motion is normal. Right Ventricle The right ventricle is normal in size and function. Atria Normal left and right atrial size and function. Mitral Valve There is no mitral regurgitation noted. Tricuspid Valve There is trace tricuspid regurgitation. There was insufficient TR detected to calculate RV systolic p ressure. Aortic Valve The aortic valve is trileaflet. There is mild aortic valve thickening. No hemodynamically significant valvular aortic stenosis. No aortic regurgitation is present. Pulmonic Valve There is no pulmonic valvular regurgitation. Great Vessels The aortic root is normal size. Pericardium/Pleura There is no pericardial effusion. Interpretation Summary The left ventricular size, thickness and function are normal The right ventricle is normal in size and function. There is trace tricuspid regurgitation. MD Storm Mabry 11/24/2019 01:09 PM
[2019-11-24 14:00] VITALS: BP 125/86; TEMP 98.1
--- NOTE | 2019-11-24 15:24 | PN ---
Progress Note, Physician History of Present Illness: 59-year-old man with history of provoked DVT , DM, Malaria 7 years ago presente d to the ER 4:00 am in the morning with right arm numbness right facial numbness patient then back to sleep patient then decided to come to the emergency room at which time patient was outside the window for intravenous thrombolysis. CT scan of the head revealed questionable evidence of left pontine stroke subsequnt MRI/MRA of the brain which revealed no evidence for acute pathology. Today: Patient seen and examined at the bedside Has no active c/o Is compliant with his DM medications No neurological complaints - Current Medication List Current Medications: Active Medications Aspirin (Ecotrin -) 81 mg PO DAILY [facility] Last Admin: 11/24/19 09:43 Dose: 81 mg Documented by: Enoxaparin Sodium (Lovenox -) 40 mg SQ DAILY [facility] Last Admin: 11/24/19 09:42 Dose: 40 mg Documented by: Insulin Aspart (Novolog Vial Sliding Scale -) 1 vial SQ [facility]; Protocol Last Admin: 11/24/19 11:47 Dose: 4 unit Documented by: Losartan Potassium (Cozaar -) 25 mg PO DAILY [facility] Last Admin: 11/24/19 09:43 Dose: 25 mg Documented by: Rosuvastatin Calcium (Crestor -) 20 mg PO [facility] - Objective Vital Signs: Vital Signs Temperature 98.1 F 11/24/19 13:58 Pulse Rate 96 H 11/24/19 13:58 Respiratory Rate 18 11/24/19 13:58 Blood Pressure 125/86 11/24/19 13:58 O2 Sat by Pulse Oximetry (%) 98 11/24/19 09:00 Cardiovascular: Yes: WNL Respiratory: Yes: WNL Neurological: Yes: WNL Labs: CBC, BMP 11/23/19 12:50 11/23/19 12:50 INR, PTT INR 0.95 (0.83-1.09) 11/23/19 12:50 Impression/Plan Impression/Plan: 1- TIA / CVA Neurology consulted TTE ASA 81 mg q daily Crestor -high intensity statin DM education CVA education to return to ED if any symptoms promptly and emergently D/C Fluids Speech and swallow- advance diet PT/OT 2- DM On ISS At home on PO medications HbA1C Lipid profile Monitor B/P Diabetic education done 3-Dispo PMD and neurology as o/p within 7 days 4. DVT Px- lovenox Daily
--- NOTE | 2019-11-24 15:28 | DS ---
Physical Exam: SUBJECTIVE: Patient seen and examined. No longer having focal neuro deficits would like to go home. OBJECTIVE: Vital Signs Period Temp Pulse Resp BP Sys/Higgins Pulse Ox Last 24 Hr 97.8 F-98.1 F 82-96 18-20 125-164/74-86 97-98 PHYSICAL EXAM GENERAL: The patient is awake, alert, and fully oriented, in no acute distress. HEAD: Normal with no signs of trauma. EYES: PERRL, extraocular movements intact, H test normal, facial muscles intact LUNGS: Breath sounds equal, clear to auscultation bilaterally, no wheezes, no crackles, no accessory muscle use. HEART: Regular rate and rhythm, S1, S2 without murmur, rub or gallop. ABDOMEN: Soft, nontender, nondistended, normoactive bowel sounds, no guarding, no rebound, no hepatosplenomegaly, no masses. EXTREMITIES: 2+ pulses, warm, well-perfused, no edema. NEUROLOGICAL: Cranial nerves II through XII grossly intact. Normal speech, gait not observed. LABS Laboratory Results - last 24 hr 11/23/19 11/23/19 11/24/19 18:52 22:38 06:10 POC Glucometer 176 98 167 11/24/19 11:30 POC Glucometer 225 HOSPITAL COURSE: Date of Admission:11/23/19 Pt was admitted for TIA/CVA rule out. Ultimately pt had MRI, MRA, Carotid, echo all found to be negative for acute infarction. Pt was loaded in ED with 325 asa we started him on high intensity statin and losartan for HTN and DM. Pt told to follow up with euro as o/p per Aleta recniurka. # TIA / CVA Neurology consulted TTE ASA 81 mg q daily Crestor -high intensity statin DM education CVA education to return to ED if any symptoms promptly and emergently D/C Fluids Speech and swallow- advance diet PT/OT No tele events on monitor #DM discontinued ISS c/w home PO medications HbA1C follow up with PCP Lipid profile LDL >70 ASCVD >7.5 % (18%) so high intensity statin initiated Monitor B/P Diabetic education done Date of Discharge: 11/24/19 Minutes to complete discharge: 35 Discharge Summary Problems reviewed: Yes Reason For Visit: TIA Condition: Improved - Instructions Diet, Activity, Other Instructions: You were admitted for having right sided weakness. Your brain and heart function were monitored while in the hospital and have several imaging studies (CT scan, MRI, MRA, echo) which were found to not show any new issues. 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 You had an echocardiogram (ultrasound of the heart) that did not show any acute conditions. You should control your diabetes, blood pressure, and cholesterol with the medications we prescribe for you as well as the medications you already were on. Medications you should start taking: Please START taking Losartan 25 mg by mouth once daily for your kidney protection and high blood pressure. Please START taking Aspirin 81 mg by mouth once daily for prevention of stroke. Please START taking Crestor 20 mg by mouth once daily for your high cholesterol. Please continue your other home medications as prescribed. Follow ups: Please follow up with your primary care physician in 1 week for further evaluation of your chronic medical issues. If you do not have one, you may make an appointment at [facility]. Please follow up with your neurologist (Dr. Mcmullen) in 1 week to medically manage your stroke prevention. Return to the ER if you have any worsening of your current symptoms. Referrals: [facility] [place] [Provider Group] - 1 Week Hernandez Mcmullen MD [Staff Physician] - 1 Week Disposition: HOME - Home Medications Comprehensive Discharge Medication List: Ambulatory Orders Aspirin Coated [Ecotrin -] 81 mg PO DAILY #30 tablet.ec 11/24/19 Losartan Potassium [Cozaar -] 25 mg PO DAILY #30 tablet 11/24/19 Metformin HCl [Glucophage] 1,000 mg PO BID 11/24/19 Rosuvastatin [Crestor -] 20 mg PO HS #30 tablet 11/24/19 This patient is new to me today: Yes Date on this admission: 11/24/19 Emergency Visit: Yes ED Registration Date: 11/23/19 Care time: The patient presented to the Emergency Department on the above date and was hospitalized for further evaluation of their emergent condition. Critical Care patient: No - Discharge Referral Referred to [facility] No ATTENDING PHYSICIAN STATEMENT I saw and evaluated the patient. I reviewed the resident's note and discussed the case with the resident. I agree with the resident's findings and plan as documented. SUBJECTIVE: OBJECTIVE: ASSESSMENT AND PLAN:
[2019-11-24 17:46] VITALS: PULSE 94
[2019-11-24] MEDS ORDERED: ROSUVASTATIN CA 5 MG TABLET (FP) PO SCH (22:00)
[2019-11-24] MEDS ORDERED: ROSUVASTATIN CA 20 MG TABLET (FP) PO SCH (22:00)
== END 2019-11-24 18:47 | disposition home or self-care (01) | DRG 69 ==
LOC: SUPCPDRO 11:22 → JER 11:22 → JERBED 15:42 → J4W 20:34
PROVIDERS: ADMIT Internal Medicine; ATTEND Internal Medicine
DX: G45.9 Transient cerebral ischemic attack, unspecified (principal); E11.9 Type 2 diabetes mellitus without complications; Z86.718 Personal history of other venous thrombosis and embolism
CPT/HCPCS: 36415; 70450-TC; 70544-TC; 70551-TC; 71045-TC-FY; 80053; 80061; 81003; 82550; 82553; 82962; 83721; 84484; 85025; 85610; 85730; 86850; 86900; 86901; 90732; 93005; 93010; 93306-TC; 93880-TC; 99285-25; G0009; J7030; Q2036

== ENCOUNTER 2023-11-10 21:37 | Emergency (ER) | payer OTHER ==
[2023-11-10 21:43] VITALS: PULSE 85; RESP 16; TEMP 98.2; BMI 30.7
[2023-11-10] MEDS ORDERED: KETOROLAC TROMETHAMINE 30 MG/1 ML VIAL ONE (23:07)
[2023-11-10 23:10] LABS: BASO % 0.4 % (0-2.0); EOS % 0.8 % (0-4.5); HEMATOCRIT 36.5 % (35.4-49); HEMOGLOBIN 12.5 GM/dL (11.7-16.9); LYMPH % 20.6 % (8-40); MCH 31.7 pg (25.7-33.7); MCHC 34.3 g/dl (32.0-35.9); MEAN CELL VOLUME 92.5 fl (80-96); MEAN PLT VOLUME 8.6 fl (7.5-11.1); MONO % 6.1 % (3.8-10.2); NEUT % 72.1 % (42.8-82.8); PLATELET COUNT 199 10^3/uL (134-434); RBC 3.95 M/mm3 (4.00-5.60); RDW 14.2 % (11.9-15.9)
[2023-11-10] MEDS: KETOROLAC TROMETHAMINE 30 MG/1 ML VIAL IVPUSH ONE (23:13)
[2023-11-10 23:31] LABS: CALCIUM 9.6 mg/dL (8.5-10.1)
[2023-11-10 23:32] LABS: ALBUMIN 3.5 g/dl (3.4-5.0); BLOOD UREA NITROGEN 18.8 mg/dL (7-18)
[2023-11-10 23:35] LABS: CREATININE 1.3 mg/dL (0.55-1.3)
[2023-11-10 23:36] LABS: BILIRUBIN,TOTAL 0.3 mg/dL (0.2-1); TOT PROT 7.1 g/dl (6.4-8.2)
[2023-11-11] VITALS: BP 163/67
== END 2023-11-11 00:12 | disposition home or self-care (01) ==
LOC: JER 21:37
PROC: 3E0333Z Introduction of Anti-inflammatory into Peripheral Vein, Percutaneous Approach (ICD-10-PCS; principal; 2023-11-10)
DX: R11.2 Nausea with vomiting, unspecified (principal); M25.511 Pain in right shoulder; R51.9 Headache, unspecified; R53.83 Other fatigue; M25.572 Pain in left ankle and joints of left foot; M79.601 Pain in right arm; W19.XXXA Unspecified fall, initial encounter; Z20.822 Contact with and (suspected) exposure to COVID-19
CPT/HCPCS: 0241U-QW; 36415; 71046-TC-FY; 73030-TC-RT-FY; 80053; 84484; 85025; 93005; 93010; 99284-25